=== PATIENT | female | born 1940 | race Caucasian/White ===

== ENCOUNTER 2017-05-01 23:49 | Inpatient (IN) | payer MEDICARE ==
[~2017-05-01] VITALS: Ht 167.6 cm; Wt 108.2 kg
[2017-05-01] MEDS ORDERED: HUMALOG100 U/ML SQ (23:57)
[2017-05-01] MEDS ORDERED: VENTOLIN0.09 MG IH (23:58)
[2017-05-01] MEDS ORDERED: QVAR0.04 MG/AC IH (23:59)
[2017-05-02] MEDS ORDERED: ZOCOR 40MG40 MG PO (00:04)
[2017-05-02] MEDS ORDERED: LANTUS SOLOS100 U/ML SQ (00:04)
[2017-05-02] MEDS ORDERED: ZESTORETIC 12.51 TA1 PO (00:05)
[2017-05-02] MEDS ORDERED: ASPIRIN 81M81 MG/TA2 PO (00:06)
[2017-05-02 00:15] LABS: BASO # 0.1 (0.0-0.2); BASO % 0.4 % (0.0-2.0); EOS # 0.1 (0.0-0.7); EOS % 0.5 % (0-4.0); GRAN # 8.7 (1.4-6.5); HEMATOCRIT 41.3 % (37.0-47.0); HEMOGLOBIN 13.4 g/dl (12.5-16.0); LYMPH # 1.9 (1.2-3.4); LYMPH % 16.4 % (20.0-51.0); MEAN CELL VOLUME 93 fl (80.0-100.0); MEAN CORPUSCULAR HEMOGLOBIN 30 pg (27.0-31.0); MEAN CORPUSCULAR HGB CONC 32 g/dl (33.0-37.0); MEAN PLATELET VOLUME 9.8 fl (7.4-10.4); MONO # 0.9 (0.1-0.6); MONO % 7.9 % (1.7-9.3); PLATELET COUNT 207 K/mm3 (130-400); RED BLOOD COUNT 4.44 M/mm3 (4.10-5.30); REDCELL DISTRIBUTION WIDTH-CV 12.5 % (11.5-14.5); WHITE BLOOD COUNT 11.8 K/mm3 (4.8-10.8)
[2017-05-02 00:24] LABS: ADJUSTED CALCIUM 9.3 mg/dL (8.4-10.2); ALANINE AMINOTRANSFERASE 28 U/L (9-52); ALBUMIN 3.6 gm/dL (3.5-5.0); ALKALINE PHOSPHATASE 77 U/L (50-136); ANION GAP 7 mmol/L (7-16); BILIRUBIN,TOTAL 0.8 mg/dL (0.0-1.0); BLOOD UREA NITROGEN 28 mg/dL (7-17); CARBON DIOXIDE 31 mmol/L (22-30); CHLORIDE 90 mmol/L (98-107); GLUCOSE 212 mg/dL (74-106); LIPASE 111 U/L (23-300); POTASSIUM 4.5 mmol/L (3.4-5.0); SODIUM 128 mmol/L (137-145); TOTAL PROTEIN 6.8 gm/dL (6.4-8.2)
[2017-05-02 00:36] LABS: B-TYPE NATRIURETIC PEPTIDE 98 pg/mL (0-125)
[2017-05-02 00:50] LABS: TROPONIN-I < 0.012 ng/mL (0.000-0.034)
[2017-05-02 03:15] VITALS: BP 130/63; PULSE 84; TEMP 98.4
[2017-05-02 03:44] LABS: URINE BACTERIA Many /hpf; URINE WBC 20-50 /hpf
[2017-05-02 03:45] LABS: PH 6 (5-8); URINE APPEARANCE Hazy; URINE BILIRUBIN Negative (NEGATIVE); URINE BLOOD Negative (NEGATIVE); URINE COLOR Yellow; URINE GLUCOSE 4+ (NEGATIVE); URINE KETONE Trace (NEGATIVE); URINE UROBILINOGEN Negative (NEGATIVE)
[2017-05-02 07:34] VITALS: BP 88/56; PULSE 77; TEMP 97.5
[2017-05-02 09:15] VITALS: BP 122/68
[2017-05-02 11:37] VITALS: BP 140/63; PULSE 69; TEMP 98.2
[2017-05-02 16:20] VITALS: BP 134/59; PULSE 99; TEMP 97.7
[2017-05-02 21:54] VITALS: BP 120/42; PULSE 76; TEMP 97.9
[2017-05-02] MEDS ORDERED: DITROPAN 5MG TAB5 MG PO (22:10)
[2017-05-03 01:25] VITALS: BP 120/49; PULSE 66; TEMP 97.1
[2017-05-03 04:19] VITALS: BP 107/41; PULSE 73; TEMP 97.9
[2017-05-03 06:31] LABS: BASO % 0.3 % (0.0-2.0); EOS % 0.3 % (0-4.0); GRAN # 6.1 (1.4-6.5); GRAN % 63.9 % (42.2-75.2); HEMATOCRIT 39.9 % (37.0-47.0); HEMOGLOBIN 12.6 g/dl (12.5-16.0); LYMPH # 2.4 (1.2-3.4); LYMPH % 25.4 % (20.0-51.0); MEAN CELL VOLUME 96 fl (80.0-100.0); MEAN CORPUSCULAR HEMOGLOBIN 30 pg (27.0-31.0); MEAN CORPUSCULAR HGB CONC 32 g/dl (33.0-37.0); MEAN PLATELET VOLUME 10.7 fl (7.4-10.4); MONO # 0.9 (0.1-0.6); MONO % 9.6 % (1.7-9.3); PLATELET COUNT 182 K/mm3 (130-400); RED BLOOD COUNT 4.18 M/mm3 (4.10-5.30); REDCELL DISTRIBUTION WIDTH-CV 12.5 % (11.5-14.5); WHITE BLOOD COUNT 9.5 K/mm3 (4.8-10.8)
[2017-05-03 06:46] LABS: CALCIUM 8.4 mg/dL (8.4-10.2); CREATININE, serum 0.61 mg/dL (0.52-1.25); POTASSIUM 4.4 mmol/L (3.4-5.0)
[2017-05-03 07:29] VITALS: BP 108/47; BP 128/34; PULSE 66; PULSE 80; TEMP 98; TEMP 98.2
[2017-05-03 12:01] VITALS: BP 109/26; PULSE 74; TEMP 98.6
[2017-05-03 16:00] VITALS: BP 128/46; PULSE 86; TEMP 97.4
[2017-05-03 19:21] VITALS: BP 116/50; PULSE 91; TEMP 97.7
[2017-05-04] VITALS (7 sets, daily range): BP systolic 106–144; BP diastolic 46–74; PULSE 70–95; TEMP 97.9–98.9
[2017-05-04 07:11] LABS: BASO % 0.5 % (0.0-2.0); EOS # 0.1 (0.0-0.7); EOS % 0.9 % (0-4.0); GRAN # 5.7 (1.4-6.5); GRAN % 66.5 % (42.2-75.2); HEMATOCRIT 38.7 % (37.0-47.0); HEMOGLOBIN 12.3 g/dl (12.5-16.0); LYMPH % 22.9 % (20.0-51.0); MEAN CELL VOLUME 96 fl (80.0-100.0); MEAN CORPUSCULAR HEMOGLOBIN 30 pg (27.0-31.0); MEAN CORPUSCULAR HGB CONC 32 g/dl (33.0-37.0); MEAN PLATELET VOLUME 10.4 fl (7.4-10.4); MONO # 0.7 (0.1-0.6); MONO % 8.7 % (1.7-9.3); PLATELET COUNT 194 K/mm3 (130-400); RED BLOOD COUNT 4.05 M/mm3 (4.10-5.30); REDCELL DISTRIBUTION WIDTH-CV 12.7 % (11.5-14.5); WHITE BLOOD COUNT 8.5 K/mm3 (4.8-10.8)
[2017-05-04 07:30] LABS: CALCIUM 8.4 mg/dL (8.4-10.2); CREATININE, serum 0.7 mg/dL (0.52-1.25); POTASSIUM 4.4 mmol/L (3.4-5.0)
[2017-05-05 03:11] VITALS: BP 104/42; PULSE 74; TEMP 97.3
[2017-05-05 07:39] VITALS: BP 177/67; PULSE 71; TEMP 97.8
[2017-05-05 07:51] LABS: PROTHROMBIN TIME 11.1 SECONDS (9.7-12.8)
[2017-05-05 07:57] LABS: CALCIUM 8.3 mg/dL (8.4-10.2); CREATININE, serum 0.83 mg/dL (0.52-1.25); POTASSIUM 4.5 mmol/L (3.4-5.0)
[2017-05-05 08:06] LABS: BASO % 0.4 % (0.0-2.0); EOS # 0.2 (0.0-0.7); EOS % 2.3 % (0-4.0); GRAN # 3.7 (1.4-6.5); GRAN % 52.1 % (42.2-75.2); HEMATOCRIT 40.5 % (37.0-47.0); HEMOGLOBIN 12.9 g/dl (12.5-16.0); LYMPH # 2.6 (1.2-3.4); LYMPH % 37.2 % (20.0-51.0); MEAN CELL VOLUME 95 fl (80.0-100.0); MEAN CORPUSCULAR HEMOGLOBIN 30 pg (27.0-31.0); MEAN CORPUSCULAR HGB CONC 32 g/dl (33.0-37.0); MONO # 0.5 (0.1-0.6); MONO % 7.6 % (1.7-9.3); PLATELET COUNT 193 K/mm3 (130-400); RED BLOOD COUNT 4.25 M/mm3 (4.10-5.30); REDCELL DISTRIBUTION WIDTH-CV 12.8 % (11.5-14.5)
[2017-05-05 09:53] VITALS: BP 138/95; PULSE 83
[2017-05-05 11:06] VITALS: BP 138/95; PULSE 83; TEMP 97.8
[2017-05-05 11:09] VITALS: BP 153/79; PULSE 105; TEMP 98.5
[2017-05-05 11:24] VITALS: BP 136/56; PULSE 85
== END 2017-05-05 12:26 | disposition short-term general hospital (02) | DRG 281 ==
LOC: COL.ER 23:49 → MEDICAL 05-02 01:06
PROVIDERS: Emergency Medicine; Family Medicine; Internal Medicine Interventional Cardiology; Nurse Practitioner Family
PROC: 4A023N7 Measurement of Cardiac Sampling and Pressure, Left Heart, Percutaneous Approach (ICD-10-PCS; principal; 2017-05-05)
PROC: B2111ZZ Fluoroscopy of Multiple Coronary Arteries using Low Osmolar Contrast (ICD-10-PCS; 2017-05-05)
DX: I21.4 Non-ST elevation (NSTEMI) myocardial infarction (principal); E87.1 Hypo-osmolality and hyponatremia; E86.0 Dehydration; I10 Essential (primary) hypertension; M19.012 Primary osteoarthritis, left shoulder; E11.9 Type 2 diabetes mellitus without complications; J44.9 Chronic obstructive pulmonary disease, unspecified
CPT/HCPCS: 99222-AI; 99232-AI; 99233-AI; 99239; A4315; C1760; C1894; J1644; J1650; J1815; J1885; J2060; J2250; J2270; J2930; J3010; J3301; J7030; Q9967